=== PATIENT | female | born 1950 ===

== ENCOUNTER 2024-11-09 20:11 | Outpatient (REF) | payer MEDICARE, SELFPAY ==
[2024-11-09 21:49] LABS: Calculated LDL 69 mg/dL (<100); Cholesterol 142 mg/dL (<200); HDL Cholesterol 56 mg/dL (40-60); Triglyceride 87 mg/dL (<150)
== END 2024-11-09 20:12 | disposition home or self-care (01) ==
LOC: NCHCN 20:11
PROVIDERS: Visit Provider Family Medicine
DX: E78.5 Hyperlipidemia, unspecified (principal)
CPT/HCPCS: 80061